=== PATIENT | male | born 1960 | race Caucasian/White ===

== ENCOUNTER 2018-08-08 01:11 | Outpatient (CLI) | payer OTHER, SELFPAY ==
[2018-08-08 12:18] LABS: Anion Gap 8.3 mmol/L (3-11); BUN 17 mg/dL (7-18); CO2 32.7 mmol/L (21.0-32.0); CREATININE 0.89 mg/dL (0.70-1.30); Calcium 9.1 mg/dL (8.5-10.1); Chloride 97 mmol/L (98-107); Glucose 101 mg/dL (70-100); Potassium 3.6 mmol/L (3.5-5.1); Sodium 138 mmol/L (136-145)
== END 2018-08-08 01:31 ==
PROVIDERS: PCP Family Medicine; Visit Provider Family Medicine
DX: Z00.00 Encounter for general adult medical examination without abnormal findings (principal); I10 Essential (primary) hypertension
CPT/HCPCS: 36415; 80048

== ENCOUNTER 2020-03-18 05:14 | Outpatient (CLI) | payer OTHER, SELFPAY ==
[2020-03-18 12:56] LABS: Anion Gap 10.6 mmol/L (3-11); BUN 22 mg/dL (7-18); CO2 28.4 mmol/L (21.0-32.0); CREATININE 0.88 mg/dL (0.70-1.30); Calcium 9.1 mg/dL (8.5-10.1); Chloride 98 mmol/L (98-107); Glucose 100 mg/dL (74-106); Potassium 3.8 mmol/L (3.5-5.1); Sodium 137 mmol/L (136-145)
== END 2020-03-18 05:34 ==
PROVIDERS: PCP Nurse Practitioner; Visit Provider Family Medicine
DX: I10 Essential (primary) hypertension (principal)
CPT/HCPCS: 36415; 80048

== ENCOUNTER 2020-09-18 02:54 | Outpatient (CLI) | payer OTHER, SELFPAY ==
[2020-09-18 12:40] LABS: Hemoglobin A1C 5.4 % (<5.7)
[2020-09-18 12:44] LABS: CREATININE 0.87 mg/dL (0.70-1.30); Calculated LDL 153 mg/dL (<100); Cholesterol 212 mg/dL (<200); HDL Cholesterol 41 mg/dL (40-60); Potassium 3.9 mmol/L (3.5-5.1); Triglyceride 93 mg/dL (<150)
== END 2020-09-18 03:14 ==
PROVIDERS: PCP Nurse Practitioner; Visit Provider Nurse Practitioner
DX: I10 Essential (primary) hypertension (principal); Z00.00 Encounter for general adult medical examination without abnormal findings
CPT/HCPCS: 36415; 80061; 82565; 83036; 84132

== ENCOUNTER 2021-03-10 09:44 | Outpatient (REF) | payer OTHER, SELFPAY ==
[2021-03-10 15:00] LABS: Calculated LDL 119 mg/dL (<100); Cholesterol 176 mg/dL (<200); HDL Cholesterol 45 mg/dL (40-60); Triglyceride 63 mg/dL (<150)
== END 2021-03-10 09:45 | disposition home or self-care (01) ==
LOC: LBN 09:44
PROVIDERS: PCP Nurse Practitioner; Visit Provider Nurse Practitioner
DX: E78.5 Hyperlipidemia, unspecified (principal)
CPT/HCPCS: 80061

== ENCOUNTER 2022-03-11 04:05 | Outpatient (CLI) | payer OTHER, SELFPAY ==
[2022-03-11 12:49] LABS: Anion Gap 7.3 mmol/L (3-11); BUN 19 mg/dL (7-18); CO2 29.7 mmol/L (21.0-32.0); CREATININE 0.9 mg/dL (0.70-1.30); Calcium 9.4 mg/dL (8.5-10.1); Chloride 99 mmol/L (98-107); Glucose 103 mg/dL (74-106); Potassium 3.7 mmol/L (3.5-5.1); Sodium 136 mmol/L (136-145)
[2022-03-11 13:14] LABS: Calculated LDL 135 mg/dL (<100); Cholesterol 204 mg/dL (<200); HDL Cholesterol 43 mg/dL (40-60); Triglyceride 132 mg/dL (<150)
== END 2022-03-11 04:06 | disposition home or self-care (01) ==
LOC: LOS 04:05
PROVIDERS: PCP Nurse Practitioner; Visit Provider Nurse Practitioner
DX: I10 Essential (primary) hypertension (principal); E78.5 Hyperlipidemia, unspecified
CPT/HCPCS: 36415; 80048; 80061

== ENCOUNTER → 2022-04-29 00:54 | Outpatient (CLI) | payer OTHER, SELFPAY ==
--- NOTE | 2022-04-29 11:03 | DI.RAD_ITS ---
Exam(s) XR HIP RT COMPLETE AP PELVIS EXAM: XR HIP RT COMPLETE AP PELVIS CLINICAL HISTORY: right hip pain,M25.559 TECHNIQUE: COMPARISON: No exams were available for comparison FINDINGS: Four views were obtained. There is severe narrowing of the cartilaginous joint space of the right hi p and moderate narrowing of the cartilaginous joint space of the left hip superiorly. On the right there is superior acetabular sclerosis with prominent cyst formation. Mild marginal ost eophytes of the acetabulum and femoral head are noted. On the left, there are mild marginal osteophytes of the acetabulum and femoral head with slight subch ondral sclerosis of the acetabulum. IMPRESSION: Severe DJD right hip, moderate DJD left hip. RADIATION DOSE DELIVERED: Total DLP
== END ==
PROVIDERS: PCP Nurse Practitioner; Visit Provider Family Medicine
DX: M25.551 Pain in right hip (principal); M16.11 Unilateral primary osteoarthritis, right hip
CPT/HCPCS: 73502

== ENCOUNTER 2022-09-09 02:35 | Outpatient (CLI) | payer OTHER, SELFPAY ==
[2022-09-09 14:07] LABS: HCT 40.5 % (40.0-50.0); MCH 30.3 pg (27.0-33.0); MCHC 34.6 % (32.0-36.0); MCV 88 fL (80-95); MPV 10.7 fL (8.0-11.0); Platelet Count 309 10^3/uL (130-400); RBC 4.62 10^6/uL (4.36-5.78); RDW 12.8 % (11.8-14.1); RDW-SD 41.1 fL; WBC 7.71 10^3/uL (4.4-10.8)
[2022-09-09 15:02] LABS: Anion Gap 6.5 mmol/L (3-11); BUN 25 mg/dL (7-18); CO2 29.5 mmol/L (21.0-32.0); CREATININE 1.1 mg/dL (0.70-1.30); Calcium 9.1 mg/dL (8.5-10.1); Chloride 102 mmol/L (98-107); Estimated GFR 76.37 (mL/min/1.73m2); Glucose 102 mg/dL (74-106); Potassium 3.8 mmol/L (3.5-5.1); Sodium 138 mmol/L (136-145)
== END 2022-09-09 02:36 | disposition home or self-care (01) ==
LOC: LBO 02:35
PROVIDERS: PCP Nurse Practitioner Family; Visit Provider Student in an Organized Health Care Education/Training Program
DX: M16.11 Unilateral primary osteoarthritis, right hip (principal); Z01.818 Encounter for other preprocedural examination
CPT/HCPCS: 36415; 80048; 85027

== ENCOUNTER 2022-09-09 13:50 | Outpatient (CLI) | payer OTHER, SELFPAY ==
--- NOTE | 2022-09-09 13:00 | DI.RAD_ITS ---
Exam(s) XR PELVIS AP EXAM: XR PELVIS AP CLINICAL HISTORY: pre op R NILDA. TECHNIQUE: 2D digital imaging was performed. COMPARISON: CR XR HIP RT COMPLETE AP PELVIS from 04/29/2022 FINDINGS: Single view. No evidence of pelvic fracture. There are advanced osteoarthritic degenerative changes right hip wit h [id number] narrowing of the superior aspect joint and degenerative subarticular cysts on both chacha es of joint. Also small marginal osteophytes of femoral head level . milder degenerative changes are noted in the opposite-left hip. IMPRESSION: DATA REPOSITORY: RADIATION DOSE DELIVERED:
== END 2022-09-09 13:51 | disposition home or self-care (01) ==
LOC: DIORS 13:50
PROVIDERS: PCP Nurse Practitioner Family; Referring Provider Nurse Practitioner Family; Visit Provider Physician Assistant
DX: M16.0 Bilateral primary osteoarthritis of hip (principal)
CPT/HCPCS: 72170

== ENCOUNTER 2022-09-21 05:55 | Day surgery (SDC) | payer OTHER, SELFPAY ==
[2022-09-21] VITALS (10 sets, daily range): BP systolic 88–163; BP diastolic 49–95; PULSE 62–87; RESP 16–20; TEMP 36.1–36.7; O2SAT 95–100; BMI 30.6
[2022-09-21] MEDS: Acetaminophen 500 MG TAB 1000 MG PO (06:34)
[2022-09-21] MEDS: Celecoxib 200 MG CAP 400 MG PO (06:34)
[2022-09-21] MEDS: Lactated Ringers 1,000 ML 80 ML IV (06:50)
--- NOTE | 2022-09-21 07:01 | W.ANESPRE ---
General Info Date of Service Date Performed: 09/21/22 Height: 5 ft 6 in Weight: 86.1 kg Body Mass Index (BMI): 30.6 Surgical Procedure: Operation Date: 09/21/22 07:50 Proposed Procedure Side Surgeon p Hip Total Hip Anterior Right Dean Christine MD Meds Allergies and Home Medications Allergies Allergy/AdvReac Type Severity Reaction Status Date / Time No Known Allergies Allergy Unverified 09/21/22 06:18 Home Medication Medication Instructions Recorded lisinopril 10 mg tablet 10 mg PO DAILY #90 tabs 10/09/21 chlorthalidone 25 mg tablet 25 mg PO DAILY #90 tabs 11/25/21 acetaminophen 650 mg 1,300 mg PO Q12H 09/21/22 tablet,extended release Current Visit Medications: Current Medications Generic Name Dose Route Start Last Admin Trade Name Freq PRN Reason Stop Dose Admin Acetaminophen 1,000 mg 09/21/22 06:00 09/21/22 06:34 Acetaminophen 500 Mg Tab PO 09/21/22 18:00 1,000 mg PREOP ROLANDA Administration Celecoxib 400 mg 09/21/22 06:00 09/21/22 06:34 Celecoxib 200 Mg Cap PO 09/21/22 18:00 400 mg PREOP ROLANDA Administration Tranexamic Acid 1,000 mg/ 60 mls @ 360 mls/hr 09/21/22 06:00 Sodium Chloride IV 09/21/22 18:00 PREOP ROLANDA Ringer's Solution 1,000 mls @ 80 mls/hr 09/21/22 06:00 IV 10/20/22 23:59 INFUSION ROLANDA Cefazolin Sodium/Dextrose 2 gm in 50 mls @ 100 mls/hr 09/21/22 06:00 Ancef Duplex IVPB 09/21/22 16:00 PREOP ROLANDA IV Miscellaneous Supplies 1 each 09/21/22 06:00 Iv Access IV 10/20/22 23:59 DIRECTED ROLANDA Sodium Chloride 0 ml 09/21/22 06:00 Normal Saline Flush 10 Ml Syr IV 10/20/22 23:59 PRN PRN Sodium Chloride 0 ml 09/21/22 06:00 Normal Saline 10 Ml Vial IJ 10/20/22 23:59 DIRECTED PRN Sterile Water 0 ml 09/21/22 06:00 Water,Injection,Sterile 10 Ml Vial IJ 10/20/22 23:59 DIRECTED PRN PFSH Active Problems Active Problems: Problem Status Onset Code Conductive hearing loss, external ear 02/03/17 H90.2 Essential hypertension I10 Hyperlipidemia E78.5 Osteoarthritis, hip, bilateral M16.0 Medical History Medical History COVID 08/2021, not immunized, not hospitalized- lost taste and smell Diverticulosis (~11/07/20) Former consumption of alcohol quit drinking in 1997 History of tobacco use 30 packyr hx; quit in 2006 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 Surgical History Surgical History (Updated 09/21/22 @ 06:22 by Estefanía Guzman) History of wisdom tooth extraction Hx of colonoscopy Tobacco Smoking/Tobacco Use Status: Former Tobacco Use Passive smoking exposure: Yes Second hand exposure: No Alcohol Alcohol Intake: former Substance Use Substance use: Never Substance use type: does not use Vital Signs and Lab Results Vital Signs Most Recent Vital Signs in EMR: Most Recent Vital Signs Temp Pulse Resp BP Pulse Ox 36.7 C 87 18 163/80 H 99 09/21/22 06:28 09/21/22 06:28 09/21/22 06:28 09/21/22 06:28 09/21/22 06:28 Lab Results Blood Type / Crossmatch: No Data to Display Complete Blood Count: White Blood Count 7.71 10^3/uL (4.4-10.8) 09/09/22 14:03 Red Blood Count 4.62 10^6/uL (4.36-5.78) 09/09/22 14:03 Hemoglobin 14.0 g/dL (13.5-17.5) 09/09/22 14:03 Hematocrit 40.5 % (40.0-50.0) 09/09/22 14:03 Platelet Count 309 10^3/uL (130-400) 09/09/22 14:03 Complete Metabolic Panel: Sodium 138 mmol/L (136-145) 09/09/22 14:03 Potassium 3.8 mmol/L (3.5-5.1) 09/09/22 14:03 Chloride 102 mmol/L (98-107) 09/09/22 14:03 Carbon Dioxide 29.5 mmol/L (21.0-32.0) 09/09/22 14:03 BUN 25 mg/dL (7-18) H 09/09/22 14:03 Creatinine 1.1 mg/dL (0.70-1.30) 09/09/22 14:03 Est GFR (CKD-EPI 2020) 76.37 (mL/min/1.73m2) 09/09/22 14:03 Calcium 9.1 mg/dL (8.5-10.1) 09/09/22 14:03 Glucose 102 mg/dL (74-106) 09/09/22 14:03 Liver Function Panel: No Data to Display Coagulation Panel: No Data to Display Cardiac Panel: No Data to Display Arterial Blood Gas: No Data to Display Venous Blood Gas: No Data to Display Pancreas Panel: No Data to Display Thyroid Panel: No Data to Display Infectious Disease: No Data to Display Blood Cultures: No Data to Display Toxicology Panel: No Data to Display Anesthesia Assessment and Plan Anesthesia History Personal History: No History of Anesthesia Complications Family History: No Family History of Anesthesia Complications Exercise Tolerance Exercise Tolerance: Metabolic Equivalents>4 Pertinent Negatives Pertinent Negatives: No Symptoms of GERD, No Major Cardiovascular Symptoms or Complaints and No Major Pulmonary Symptoms or Complaints Cardiac & Pulmonary Exam Cardiac Exam: Normal S1/S2 Heart Sounds Pulmonary Exam: Clear Bilateral Breath Sounds Implantable Cardiac Device Does patient have a Pacemaker or an ICD?: No Airway Exam Known Difficult Airway: No Mallampati Class: 2 Mouth Opening: Normal (> 3cm) Thyromental Distance: Greater than 3 cm Neck Range of Motion: Full ROM Neck Circumference: Normal Teeth Condition: Normal Dentition ASA Classification ASA Score: ASA 2 Emergency Case?: No NPO Status NPO Status: NPO Clears >2 hours, Solids >8 hours Anesthesia Plan Resuscitation Status: Full Code Anesthesia Technique: Spinal Anesthesia Airway Planned: Natural Airway Monitors Used: Standard Monitors
--- NOTE | 2022-09-21 07:19 | DSE_ITS ---
Date of service: 09/21/22 Time of Service: 07:20 Discharge Plan Disposition Patient Disposition: Home Condition: Good Discharge Details Reason For Visit: Right hip DJD Attending Provider: Dean Christine Primary Care Provider: Gillian Trujillo Home Meds and New Rx's Prescriptions: New celecoxib [Celebrex] 200 mg capsule 200 mg PO BID Qty: 30 0RF aspirin 81 mg tablet,delayed release (DR/EC) 81 mg PO BID 30 Days Qty: 60 0RF acetaminophen 500 mg tablet 500 mg PO Q6H PRN (Reason: pain) Qty: 60 2RF pantoprazole 40 mg tablet,delayed release (DR/EC) 40 mg PO DAILY 14 Days Qty: 14 0RF dexamethasone 4 mg tablet 4 mg PO DAILY Qty: 2 0RF Rx Instructions: Take one tablet once daily for two days docusate sodium [Colace] 100 mg capsule 100 mg PO BID Qty: 30 0RF oxycodone 5 mg tablet 5 mg PO Q6H PRN (Reason: severe post-operative pain) Qty: 12 0RF Rx Instructions: Take one tablet up to every 6 hours as needed for severe pain Continued lisinopril 10 mg tablet 10 mg PO DAILY Qty: 90 4RF chlorthalidone 25 mg tablet 25 mg PO DAILY Qty: 90 4RF Discontinued acetaminophen [Tylenol Arthritis] 650 mg Tablet Extended Release 1,300 mg PO Q12H Discharge Instructions Additional Instructions: Total Hip Discharge Instructions Activity: The most important activity is to walk. You should try to take short walks a few times a day. You have no restrictions on movement or positioning, but do not try to force what you do. You will find some stiffness and weakness with hip flexion (lifting your knee). Do not try to strengthen this too early, continue to practice walking and stairs and this will come. - Outpatient physical therapy can be helpful to help return you to a normal gait and improve your flexibility and strength. This can start around 2 weeks. For some patients, it?s not necessary. Usually this is determined at the time of discharge or at the first post-operative visit. - You should wear the DANYEL hose on both legs for 2 weeks. Dressing: Keep the surgical dressing in place for at least one week. After the first week it may be removed and replace with light gauze and tape or nothing. It may get wet after 3 days but avoid soaking the dressing. If it gets wet, just lightly pat dry. It is important to always keep some gauze between skin folds, especially when you are sitting. Spend some time with the wound exposed when you are lying flat as the incision does wrinkle onto itself. Medications: - You should take Tylenol and an anti-inflammatory Celebrex as your primary pain control medications. If the Celebrex is too expensive or not covered, please call the office for another alternative (Advil/Ibuprofen or Naproxen/Aleve). - You have been prescribed a stronger pain medication Oxycodone for breakthrough pain, take as needed as prescribed. - You have also been prescribed a stomach acid reduction agent Pantoprozole to help reduce stomach acid and reflux. - You have also been prescribed Decadron to help with post-operative nausea and pain. You will take this for two days starting tomorrow. - You will be taking Aspirin 81mg twice a day for DVT prevention unless instructed otherwise. - If you have constipation you should take Colace (which is been prescribed) or Miralax (which is available [id number]). It takes most people 3-4 days to have a bowel movement. Follow-up: 2 weeks If you have any acute concerns or questions, please do not hesitate to contact the office at [phone]. You may contact Dr. Christine with any questions after hours through the hospital at [phone] or on his cell phone at [phone]. Stand Alone Forms: Anesthesia Discharge InstGuy, Marta Massey (U) Referrals: Dean Christine MD [ [facility] STAFF PHYSICIAN] - Equipment/Supplies: Walker Activity:: Activity as Tolerated Remove Dressings/Wound Care:: Do Not Remove Shower/Bathe:: Cover Diet:: As Tolerated DS: Summary Time Spent with Patient providing and/or coordinating discharge services: Less than 30 minutes Status at Discharge Functional status at discharge: uses cane/walker Overall status at discharge: patient is progressing back to baseline Mental Status: mental status grossly normal Speech and Movement: speech and movement normal Mood: congruent mood Affect: normal affect Exam Psych Mental Status: mental status grossly normal Speech and Movement: speech and movement normal Mood: congruent mood Affect: normal affect DS: Data Vitals/I&O Vitals and I&O: Vital Signs Temperature 98.1 F 09/21/22 06:28 Pulse 87 09/21/22 06:28 Pulse Rhythm Regular 09/21/22 06:28 Respiratory Rate 18 09/21/22 06:28 Respiratory Depth Normal 09/21/22 06:28 Blood Pressure 163/80 H 09/21/22 06:28 Pulse Oximetry 99 09/21/22 06:28 Oxygen Delivery Method Room Air 09/21/22 06:28 Oxygen Flow Rate 0 09/21/22 06:28 Pain Level 2 09/21/22 06:28 Intake & Output 09/20/22 09/20/22 09/21/22 11:59 23:59 11:59 Weight 180 lb 189 lb 13.088 oz PFSH All Active Problems Conductive hearing loss, external ear (Acute 02/03/17) left worse than right, not reDY FOR HEARING AIDS- CHECKS YEARLY Essential hypertension (Acute) Hyperlipidemia (Acute) Osteoarthritis, hip, bilateral (Acute) Medical History COVID 08/2021, not immunized, not hospitalized- lost taste and smell Diverticulosis (~11/07/20) Former consumption of alcohol quit drinking in 1997 History of tobacco use 30 packyr hx; quit in 2006 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 Maternal Grandfather Heart disease Myocardial infarction Paternal Grandfather Heart disease Myocardial infarction Maternal Grandmother Cancer Paternal Grandmother Breast cancer Brother No problems noted. Social History Smoking/Tobacco Use Status: Former Tobacco Use tobacco type: cigarettes Quit Date: 09/05/05 Tobacco: How many years used: 30 Second Hand Exposure: No Smoking risk assessment performed?: Yes Alcohol Intake: former Drug use: Never Substance use type: does not use Caregiver/Support person: No Household members: significant other Housing: house Communication Needs: None Do you need help understanding health information?: Never current occupation: [employer] Pets and animals: Yes Pets and animals: dog(s) Sexually active: Yes Do you think of yourself as: straight/heterosexual Current gender identity: male What is your relationship status?: living with partner How often do you talk on the phone with friends or family?: three or more times per week How often do you get together with friends or relatives?: three or more times per week How often do you attend sabianism or anabaptism services?: decline to answer Do you belong to any clubs or organized social groups?: decline to answer Panel score (0-1 are the most socially isolated patients): 2 Duration: > 90 minutes/day Frequency: daily Seatbelt use: sometimes Helmet use: Yes Helmet use: sometimes Drive intox or ride w/intox maintenance truck driver: No Do you feel safe at home: Yes Do you feel safe in your relationship?: Yes Victim of physical abuse: No Victim of emotional abuse: No Victim of sexual abuse: No Would you like helpful sources: No Additional Social history: unable to assess privately Time Spent with Patient Time Spent with Patient: <45 minutes Time was spent: ordering medications,tests, procedures, referring, communicating with other health field care coordinator and care coordination
[2022-09-21] MEDS: ceFAZolin 2 GM/50 ML BAG IVPB (07:25)
--- NOTE | 2022-09-21 08:27 | DI.RAD_ITS ---
Exam(s) XR HIP RT IN OR EXAM: XR HIP RT IN OR CLINICAL HISTORY: total hip. TECHNIQUE: 2D digital imaging was performed. COMPARISON: No exams were available for comparison FINDINGS: Fluoroscopy provided intraoperatively during hip arthroplasty. See procedure report for details. IMPRESSION: As above. Radiation exposure index: [place]=[id number] DATA REPOSITORY: RADIATION DOSE DELIVERED:
--- NOTE | 2022-09-21 09:02 | ROE_ITS ---
Date of service: 09/21/22 Time of Service: 08:40 Operative Note Operative Note DATE OF PROCEDURE: 09/21/22 PRE-OP DIAGNOSIS: Right Hip Osteoarthritis POST-OP DIAGNOSIS: same PROCEDURE: Right Anterior Total Hip Arthroplasty with Intraoperative Navigation SURGEON: Dean Christine FLEET ASSISTANT: Ebony Lerner ANESTHESIA TYPE: Spinal Refer to Anesthesia Record ESTIMATED BLOOD LOSS: 150 PATHOLOGY: none sent TOURNIQUET TIME: 0 COMPLICATIONS: None Patient was transported to: PACU Patient's condition: stable Implants: 1. Depuy [place] Acetabular Component, 52mm 2. Depuy Acetabular Liner, [id number] 3. Depuy Corail Standard 125 degree Collared Femoral Stem, Size 12 4. Depuy Altrx Ceramic Femoral Head, Size 36+5mm Indications: I have seen Jacobo in clinic for symptoms of hip arthritis, confirmed with radiographic findings. Jacobo has exhausted nonoperative methods and was having significant limitations in daily function and desired better function and less pain. I discussed the technical details of a hip replacement. I explained the risks of the procedure to include, but not limited to, bleeding, infection, pain, stiffness, fracture, damage to nerves and vessels, damage to muscles and tendons, loosening, instability, leg length inequality, need for repeat procedure, blood clot and cardiopulmonary demise. Despite these risks, Jacobo elected to proceed. Findings: There was significant signs of arthritis throughout the hip involving the femoral head and the acetabulum. Procedure Description: Jacobo was greeted in the preoperative holding area where the correct side was identified and marked. The consent was reviewed with the patient and signed. The history and physical was updated. All questions were answered. She was taken back to the operating room. A spinal anesthestic was then administered. The feet were wrapped with cast padding and Coban and then placed into the boot liners and then into the boots. Care was taken to protect the ski n and make sure the heels were fully down and the boots were stable. The patient was then positioned onto the HANA table. Both legs were held in a neutral position. SCDs were applied. The patient was then slid down onto a peroneal post. Prophylactic antibiotics in the form of Cefazolin were administered. 1g of Tranxemic Acid was given intravenously within 30 minutes of incision. The right leg was then prepped with Chloraprep and draped in a standard fashion. A second prep with Chloraprep was performed prior to placement of a shower-curtain type drape with Iodine impregnated skin prot ection. A timeout to confirm correct identity, side and site, procedure, allergies, anesthesia, and medical concerns was performed. An obliquely oriented incision was made starting lateral to the ASIS and running distal over the Tensor Fascia Juani (TFL) muscle belly toward the fibular head, approximately 10cm. The skin and soft tissue was dissected sharply, through Stefan?s fascia, and to the fascia of the TFL. With the fascia and superior border of the IT band identified, the fascia was incised with a new knife just above any perforators from the IT band. The TFL muscle belly was bluntly dissected away from the fascia and moved laterally. The fat between TFL and rectus was identified to ensure the dissection was not within the TFL. Blunt dissection created space between abductors and the capsule and retractor was placed over the lateral femoral neck. The fibers of the rectus femoris tendon were identified and these were freed from the anterior capsule. A second cobra retractor was placed around the medial femoral neck. The TFL was further retracted laterally to show the deep fascia. Careful dissection through this layer identified three main crossing vessels of the lateral femoral circumflex. These were cauterized in multiple locations and then cut without any noticeable bleeding. The TFL was further released bluntly from the deep fascia to expose anterior hip capsule and fat The Beau orthopaedic retractor was then placed beneath the TFL and against sartorius and medial soft tissues to protect and retract the soft tissues. A T-capsulotomy was then performed starting at the superior lateral acetabulum and moving distally to the intertrochanteric ridge. These capsular flaps were tagged with a No. 1 Ethibond and elevated from within. The capsular flaps were released to the shoulder of the lateral neck and to the lesser trochanter to give excellent visualization of the proximal femur. A neck osteotomy was performed using an oscillating saw based on preoperative templates. This cut started in the shoulder and of the lateral neck and exited medially. The saw was at all times directed medially to avoid injury to the greater trochanter. Gross traction was applied to the leg and the osteotomy opened. The femoral head was removed with a corkscrew, making sure to protect the TFL on its exit. Traction was released after head removal. This was measured on the back table to determine the starting reamer size. Portions of the rectus obscuring visualization were minimally elevated off the superior acetabulum. An anterior retractor was placed over the anterior wall between capsule and labrum and attached to the Gripper retraction system. The femur was rotated to 90 degrees and medial capsule was fully released until the lesser trochanter was palpable and visible; the femur was returned to 30 degrees. A posterior retractor was placed similarly between capsule and labrum. This provided excellent visualization. The contents of the cotyloid fossa were removed with electrocautery and the labrum was removed with a knife. There was a notable floor osteophyte. There was significant chondromalacia of the superior acetabulum. Acetabular reaming began with a 48mm reamer. This first reaming was directed anterior to posterior and medial to get down to the true floor. This was inspected and reamed until the true floor was reached. The anterior retractor was then released and entry and exit was provided by traction on the capsular flaps. I then reamed sequentially up to a 52mm reamer where good fit was obtained. The larger reamers were oriented based on anatomical reference of the anterior and lateral herrera to ensure proper abduction and anteversion. Positioning and size was confirmed with the fluoroscopy. A 52mm Depuy [place] acetabular component was selected. The acetabulum was reamed around the periphery with the selected acetabular size to prevent a rim fit. The deep tissues were irrigated. The acetabular component was then impacted in a position of about 40-45 degrees of abduction and 15-20 degrees of anteversion, using the patient?s anatomy as the ultimate landmark. Fluoroscopy was used to confirm this. There was excellent licensed psychologist director of the acetabular component and the inserting handle was removed. The acetabular liner, Depuy [id number] polyethylene liner, was inserted and lined up with the tines of the acetabular component. There was no soft tissue interposition. The liner was then impacted into position and confirmed to be well-seated. A portion of the shaniqua-articular cocktail was then injected around the acetabulum into the capsule and periosteum. This cocktail consisted of 123mg of Ropivacaine, 0.25mg of Epinephrine, 0.04mg of Clonidine, and 15mg of Ketorolac, diluted to 50cc. The leg was rotated to 120 degrees. Any remaining medial capsule was released until the lesser trochanter was easily palpable. A retractor was placed medially. The lateral capsule was further released into the shoulder to allow access to the greater trochanter. A Collins retractor was placed over the greater trochanter which allowed the trochanter to flip in front of the capsule for excellent exposure. The leg was brought down into maximal extension and 20 degrees of adduction while ensuring there was no impingement on the acetabulum. Any remnant capsule within the trochanter was released. Piriformis and obturator externis were identified and protected. There was excellent access to the proximal femur. The lateral neck remnant was removed with a rongeur. A blunt canal probe was used to identify the canal and trajectory for later broaching. A box osteotome initiated the broach course. A small curved rasp and a curved curette were used to work laterally. Broaching then began with a size 8 Corail broach. This was inserted manually around the trochanter and into the canal before mallet blows. The broach was seated to a few millimeters below the cut level based on the neck cut and the preoperative template. Sequential broaching was continued with the PurePlay pneumatic broaching device until a tight fit was obtained with good rotational control of the femur. A trial stand shanta 125 neck was inserted along with a +5 trial head. The leg was brought out of extension and adduction and then reduced with traction and internal rotation. The leg was stable anteriorly in a position of 30 degrees of extension and 90 degrees of external rotation. Fluoroscopy was used to ensure there was no fracture and the stem was seated well. Leg lengths were checked with an AP pelvis and pelvic reference points. Freightos navigation system was used to confirm appropriate positioning and leg length and offset. Once content with the desired offset and leg lengths, the leg was brou ght back into extension, external rotation and adduction. The periosteum and surrounding tissue was injected with remaining portion of the shaniqua-articular cocktail. The proximal femur was irrigated as well as the deep tissues. The Depuy Corail standard 125 degree collared stem, size 12, was then manually inserted into the proximal femur making sure to control rotation. It was then malleted into position with light blows, giving breaks to allow bone expansion and decrease risk of fracture. The selected Depuy Altrx Ceramic Head, size 36+5mm, was then placed onto the clean and dry trunnion and secured with impaction onto the tapered fit. The leg was brought back out of extension and adduction and reduced with traction and internal rotation. Stability was confirmed with no shuck at 90 degrees of external rotation and 30 degrees of extension. No impingement through range of motion arc. Final x-ray images were obtained with fluoroscopy to confirm adequate positioning and no intraoperative fracture. The deep tissues were thoroughly irrigated with Surgiphor, betadine solution. This was allowed to sit in the wound for 3 minutes before being thoroughly irrigated out with normal saline. The capsule was then reapproximated with the previously placed Ethibond sutures. The TFL fascia was finally closed with a No. 2 Stratafix, barbed suture. Deep tissues were then reapproximated with 0 Vicryl and a running 2-0 Vicryl. The skin was closed with a running 4-0 Monocryl in a subcuticular fashion. This was reinforced with skin glue. A Mepilex silver dressing was applied. At the end of the case, all counts were correct. Jacobo was transferred to the hospital bed without difficulty and suffering no apparent complication. Jacobo has a good prognosis. Physical therapy will start today and without restrictions, weight-bearing as tolerated. Aspirin 81mg BID will be used for DVT prophylaxis.
--- NOTE | 2022-09-21 10:55 | W.ANESPOSTOP ---
Postoperative Evaluation Date, Time and Location Date Performed: 09/21/22 Time Performed: 10:10 Patient Location: Day Surgery Unit Vital Signs Most Recent Imported Vital Signs: Most Recent Vital Signs Temp Pulse Resp BP Pulse Ox 36.3 C L 62 16 126/68 100 09/21/22 09:54 09/21/22 09:54 09/21/22 09:54 09/21/22 09:54 09/21/22 09:54 Pain Score Most Recent Pain Score: Most Recent Pain Score Pain Level 0 09/21/22 09:54 Assessment Mental Status: Awake (Alert & Oriented to Patient Baseline) Airway and Respiratory Function: Patent airway with normal (patient baseline) respiratory exam Cardiovascular Function: Hemodynamically Stable Hydration Status: Adequately Hydrated Nausea & Vomiting: No Nausea or Vomiting Pain: Pt. Denies Any Pain Peripheral Nerve Block: Patient did not receive a nerve block Postoperative Comments:: Able top move legs, still numb sensation in extremities.
--- NOTE | 2022-09-21 11:01 | IN_ITS ---
Date of service: 09/21/22 Time of Service: 11:01 PT Notes Visit Reasons: Right hip DJD Physical Therapy Day Surgery Initial Evaluation Date: 09/21/2022 Referring Doctor: ROSA Ervin PT Orders: PT CONSULT: S/pPOrtho surgery Precautions: WBAT on right LE with AD. Patient Profile/Admitting Diagnosis: Jacobo is a 62-year-old male with degenerative joint disease of the right hip and status post right anterior total hip arthroplasty on postoperative day 0. PMHX: Medical History? 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 Then with all aspects of ADLs prior to surgery without AD. 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 Equipment Owned/DME: None Subjective: Jacobo reports 3/10 pain at rest in his right hip that diminished to 1 out of 10 with ambulation activity. Denies headache, chest pain, and dizziness throughout session. Objective: General Observation: Supine in bed. Right Ag over surgical incision. Cold pack over surgical right hip. Other present throughout session. Mental Status: Alert and oriented x4 with weightbearing Pain: 3/10 pain at rest, 1/10 with weight bearing ROM: Right Lower Extremity: Hip flexion WFL. Hip abduction WFL. Knee flexion WFL. Ankle dorsiflexion WFL. Ankle plantarflexion WFL. Left Lower Extremity: Hip flexion WFL. Hip abduction WFL. Knee flexion WFL. Ankle dorsiflexion WFL. Ankle plantarflexion WFL. Strength: Right Lower Extremity: Hip flexors 4/5. Hip abductors 4/5. Knee flexors 5/5. Knee extensors 4/5. Ankle dorsiflexors 5/5. Ankle plantarflexors 5/5. Left Lower Extremity:Hip flexors 5/5. Hip abductors 5/5. Knee flexors 5/5. Knee extensors 5/5. Ankle dorsiflexors 5/5. Ankle plantarflexors 5/5. Sensation: Intact as to pain and light pressure in bilateral lower extremities Bed Mobility/Transfers: Supine to sit supervision Sit to stand standby assist Stand to sit standby assist Bed to chair standby assist THERA EX: Gluteal sets x 5 Heels slides x5 Quads sets x 5 Ankle pumps x 5 LAQ x 5 Seated marches x 5 Gait: 20 feet on level surface ambulation using front wheel walker with step-through gait pattern requiring supervision assist. 100 feet using bilateral axillary crutches with three-point gait pattern requiring supervision. Stairs: Down 6 x 4 inch steps and 4 x 6 inch steps while holding onto bilateral rails with supervision. Balance: Static Sitting: Normal Dynamic Sitting: Normal Static Standing: Good Dynamic Standing: Fair Special Tests: Mobility Limitations Standardized Measure [facility] 6 clicks Basic Mobility Inpatient Short Form: Raw Score: 24 CMS Score: 0% deficit Informed Consent/Education: Patient instructed in purpose of PT consult. Packet containing NILDA exercise protocol has been given to patient. Education and training on initial set of exercises that can be done at home have been completed with patient. Assessment: Patient requires the use of bilateral axillary crutches for all mobility ADL performance to maximize independence and reduce fall risk. Patient presents with clinical signs and symptoms consistent with current/admitting diagnoses that have resulted to mobility limitations, gait instability, generalized weakness, and impairment of motor control as demonstrated by the following impairment level findings: 1. Decreased strength to right hip major muscle groups 2. Impaired standing balance 3. Limitation of joint range of motion in left knee Impairments are contributing to the following functional limitations: 1. Inability to safely ambulate without assistive device 2. Increase completion time for mobility ADL performance 3. Increased fall risk Patient is assessed as a [id number] moderate complexity based on the following: History: 62-year-old male with impairment level findings, functional limitations, and past medical history as indicated above Examination: Demonstrable impairment in strength, balance, and mobility level with underlying impairments and functional limitations as documented above Presentation: Evolving Decision Makin moderate complexity Goals: N/A. PT evaluation and 1-2 treatment sessions only for functional mobility training using recommended AD and for HEP instruction. Plan of Care/Treatment Plan: N/A. PT evaluation and 1-2 treatment session only for functional mobility training using recommended AD and for HEP instruction. DISCHARGE RECOMMENDATIONS: Home when medically cleared by orthopedic surgeon. Recommend outpatient PT services in order to maximize functional mobility outcomes and facilitate return to independent community ambulation and vocational activities. TREATMENT CODE/TIME: 9716 2 x 20 minutes, 9753 0 x 15 minutes beginning at 11:01 AM. Thank you for the opportunity to participate in the care of this patient. Jocelyne Landon PT, DPT, CLT [facility] [place], [place]
== END 2022-09-21 12:25 | disposition home or self-care (01) ==
PROVIDERS: PCP Nurse Practitioner Family; Visit Provider Student in an Organized Health Care Education/Training Program
PROC: (CPT 27130; principal; 2022-09-21 07:30)
DX: M16.0 Bilateral primary osteoarthritis of hip (principal); I10 Essential (primary) hypertension; E78.5 Hyperlipidemia, unspecified
CPT/HCPCS: 27130; 20985; 97162; 97530; 73501; J0690; J1100; J2250; J2405

== ENCOUNTER 2022-10-04 11:39 | Outpatient (CLI) | payer OTHER, SELFPAY ==
--- NOTE | 2022-10-04 10:59 | DI.RAD_ITS ---
Exam(s) XR HIP RT COMPLETE AP PELVIS EXAM: XR HIP RT COMPLETE AP PELVIS CLINICAL HISTORY: 1ST POST OP R NILDA. TECHNIQUE: 2D digital imaging was performed. Three images were obtained. AP, lateral and oblique vi ews were obtained. COMPARISON: CR XR HIP RT COMPLETE AP PELVIS from 04/29/2022 CR XR PELVIS AP from 09/09/2022 XA XR HIP RT IN OR from 09/21/2022 FINDINGS: BONES: There are stable post operative changes present. No fracture or dislocation. JOINTS: The orthopedic hardware is in good position. No evidence of hardware loosening. Subchondral cystic changes are again seen in the right acetabulum. There are degenerative changes again seen in the left hip with joint space narrowing and acetabular spurring. SOFT TISSUE: Vascular calcifications are present. IMPRESSION: Stable postoperative changes. DATA REPOSITORY: RADIATION DOSE DELIVERED:
== END 2022-10-04 11:40 | disposition home or self-care (01) ==
LOC: DIORS 11:39
PROVIDERS: PCP Nurse Practitioner Family; Referring Provider Nurse Practitioner Family; Visit Provider Student in an Organized Health Care Education/Training Program
DX: Z96.641 Presence of right artificial hip joint (principal); Z47.1 Aftercare following joint replacement surgery
CPT/HCPCS: 73502

== ENCOUNTER 2023-06-02 09:58 | Outpatient (CLI) | payer OTHER, SELFPAY ==
[2023-06-02 12:46] LABS: Calculated LDL 147 mg/dL (<100); Cholesterol 223 mg/dL (<200); HDL Cholesterol 41 mg/dL (40-60); Triglyceride 175 mg/dL (<150)
[2023-06-02 12:47] LABS: Hemoglobin A1C 5.5 % (<5.7)
== END 2023-06-02 09:59 | disposition home or self-care (01) ==
LOC: LOS 09:58
PROVIDERS: PCP Family Medicine; Visit Provider Family Medicine
DX: E11.51 Type 2 diabetes mellitus with diabetic peripheral angiopathy without gangrene (principal); E78.5 Hyperlipidemia, unspecified
CPT/HCPCS: 36415; 80061; 83036

== ENCOUNTER 2023-10-07 09:39 | Outpatient (CLI) | payer OTHER, SELFPAY ==
--- NOTE | 2023-10-07 09:15 | DI.RAD_ITS ---
Exam(s) XR HIP RT AP LAT ONLY EXAM: XR HIP RT AP LAT ONLY CLINICAL HISTORY: ANNUAL F/U R NILDA. TECHNIQUE: 2D digital imaging was performed. COMPARISON: CR XR HIP RT COMPLETE AP PELVIS from 10/04/2022 FINDINGS: Two views. Stable position alignment of the components of the prosthesis. No fracture or loosening evident IMPRESSION: Stable satisfactory appearance DATA REPOSITORY: RADIATION DOSE DELIVERED:
--- NOTE | 2023-10-07 09:30 | DI.RAD_ITS ---
Exam(s) XR KNEE LT 3V AP,LAT,JASON EXAM: XR KNEE LT 3V AP,LAT,JASON CLINICAL HISTORY: LEFT KNEE PAIN. TECHNIQUE: 2D digital imaging was performed. COMPARISON: No exams were available for comparison FINDINGS: 3 views No evidence of fracture or promise joint effusion Mild medial joint space narrowing. Lateral compartment exhibits normal height. No osteochondral def ects. Bone density normal. No osseous lesions. Vascular calcification in the femoral arteries note d. IMPRESSION: Mild degenerative change in the medial compartment. DATA REPOSITORY: RADIATION DOSE DELIVERED:
== END 2023-10-07 09:40 | disposition home or self-care (01) ==
PROVIDERS: PCP Family Medicine; Referring Provider Family Medicine; Visit Provider Student in an Organized Health Care Education/Training Program
DX: Z96.641 Presence of right artificial hip joint (principal); M25.562 Pain in left knee; M17.12 Unilateral primary osteoarthritis, left knee
CPT/HCPCS: 73562; 73502

== ENCOUNTER 2024-06-07 09:44 | Outpatient (CLI) | payer OTHER, SELFPAY ==
[2024-06-07 13:03] LABS: CREATININE 0.9 mg/dL (0.70-1.30); Calculated LDL 142 mg/dL (<100); Cholesterol 201 mg/dL (<200); Estimated GFR 96.57 (mL/min/1.73m2); HDL Cholesterol 42 mg/dL (40-60); Potassium 3.4 mmol/L (3.5-5.1); Triglyceride 87 mg/dL (<150)
[2024-06-07 13:22] LABS: Hemoglobin A1C 5.5 % (<5.7)
[2024-06-07 22:31] LABS: PSA, Screening 2.8 ng/mL (<=4.5)
== END 2024-06-07 09:45 | disposition home or self-care (01) ==
LOC: LOS 09:44
PROVIDERS: PCP Family Medicine; Referring Provider Family Medicine; Visit Provider Family Medicine
DX: I10 Essential (primary) hypertension (principal); E78.5 Hyperlipidemia, unspecified; E11.51 Type 2 diabetes mellitus with diabetic peripheral angiopathy without gangrene; I70.209 Unspecified atherosclerosis of native arteries of extremities, unspecified extremity; Z12.5 Encounter for screening for malignant neoplasm of prostate
CPT/HCPCS: 36415; 80061; 84153; 82565; 83036; 84132

== ENCOUNTER 2024-11-07 02:27 | Outpatient (CLI) | payer OTHER, SELFPAY ==
--- NOTE | 2024-11-07 06:45 | DI.RAD_ITS ---
Exam(s) RF BARIUM SWALLOW EXAM: RF BARIUM SWALLOW CLINICAL HISTORY: trouble swallowing solids,dysphagia,r13.10 TECHNIQUE: 2D and realtime digital imaging was performed. CONTRAST MATERIAL: Oral barium Oral water soluble contrast was administered. COMPARISON: No exams were available for comparison FINDINGS: ESOPHAGRAM: Performed standing and recumbent both single and air contrast technique. The swallowing mechanism appears grossly intact. There was no aspiration evident on this study. No evidence of Zenker's diverticulum. The esophagus diameter is normal. There were no strictures demon strated in the esophagus nor at the GE junction. No significant Schatzki ring. No hiatal hernia. N o obvious reflux demonstrated no prominent tertiary waves demonstrated. No evidence of achalasia. IMPRESSION: No fixed lesions seen in the esophagus. No hiatal hernia. No reflux RADIATION DOSE DELIVERED: shanta Tran=63 mGy
[2024-11-07] MEDS: Barium Sulfate 98% W/W 140 ML BTL PO (09:36)
[2024-11-07] MEDS: Simethicone/Sod Bicarb/Cit Ac, 4 gram PACKET 1 PACKET PO (09:36)
[2024-11-07] MEDS: Barium Sulfate 60% W/V 355 ML BTL PO (09:37)
== END 2024-11-07 02:47 ==
LOC: DI 02:28
PROVIDERS: PCP Family Medicine; Visit Provider Family Medicine
DX: R13.10 Dysphagia, unspecified (principal)
CPT/HCPCS: 74221; J3490

== ENCOUNTER 2025-06-11 09:41 | Outpatient (CLI) | payer OTHER, SELFPAY ==
[2025-06-11 14:21] LABS: Calculated LDL 116 mg/dL (<100); Cholesterol 182 mg/dL (<200); Estimated GFR 99.44 (mL/min/1.73m2); HDL Cholesterol 27 mg/dL (>or=40); Potassium 3.4 mmol/L (3.5-5.1); Triglyceride 197 mg/dL (<150)
[2025-06-12 01:44] LABS: PSA, Screening 1.7 ng/mL (<=4.5)
== END 2025-06-11 09:42 | disposition home or self-care (01) ==
LOC: LOS 09:42
PROVIDERS: PCP Family Medicine; Visit Provider Family Medicine
DX: Z13.220 Encounter for screening for lipoid disorders (principal); Z12.5 Encounter for screening for malignant neoplasm of prostate; I10 Essential (primary) hypertension
CPT/HCPCS: 36415; 80061; 84153; 82565; 84132